=== PATIENT | female | born 1960 | race Caucasian/White ===

== ENCOUNTER 2017-05-13 14:00 | Emergency (ER) | payer OTHER ==
[~2017-05-13] VITALS: Ht 162.6 cm; Wt 85.3 kg
[~2017-05-13 14:00] MED LIST: ALEVE220 MG PO; CELEXA20 MG PO; ZANTAC150 MG PO; ZESTRIL,PRINIVI10 MG PO
[2017-05-13 15:55] LABS: HEMATOCRIT 40.1 % (36.0-46.0); MCH 27.7 PG (29.0-34.0); MCHC 34.2 G/DL (30.0-36.0); MEAN PLAT.VOLUME 10.1 uM^3 (9.5-12.4); PLATELET COUNT 188 K/uL (156-360); RBC DIS.WIDTH-CV 13.6 % (11.8-14.6); RBC DIS.WIDTH-SD 39.5 % (39-53); RED BLOOD COUNT 4.95 M/uL (3.80-5.20); WHITE BLOOD COUNT 7.2 K/uL (4.1-10.2)
[2017-05-13 16:15] LABS: CHLORIDE 104 mEq/L (99-109); SODIUM 140 mEq/L (136-147)
[2017-05-13 16:16] LABS: D-DIMER ELISA < 150.00 ng/mLDDU (<230); GLUCOSE 105 mg/dL (70-99)
[2017-05-13 16:18] LABS: ANION GAP 11 MEQ/L (2-14)
[2017-05-13 16:20] LABS: GFR ESTIMATE (CALCULATED) > 59 mL/min/
[2017-05-13 16:21] LABS: UREA NITROGEN (BUN) 12 mg/dL (9-23)
[2017-05-13 16:27] LABS: TROP-I INTERPRETATION NEGATIVE; TROPONIN-I < 0.01 ng/mL (0.0-0.30)
[2017-05-13 17:51] LABS: TROP-I INTERPRETATION NEGATIVE; TROPONIN-I < 0.01 ng/mL (0.0-0.30)
[2017-05-13] MEDS ORDERED: TRAMADOL HCL50 MG PO (18:14)
[2017-05-13 18:38] VITALS: BP 149/87
== END 2017-05-13 18:39 | disposition home or self-care (01) ==
LOC: EME 14:00
PROVIDERS: Physician Assistant Medical
DX: M54.6 Pain in thoracic spine (principal); K21.9 Gastro-esophageal reflux disease without esophagitis; F32.9 Major depressive disorder, single episode, unspecified; I45.10 Unspecified right bundle-branch block; F17.200 Nicotine dependence, unspecified, uncomplicated
CPT/HCPCS: 71020; 80048; 84484; 85027; 85379; 93005; 99281; 99283

== ENCOUNTER → 2017-09-20 | Outpatient (CLI) | payer OTHER ==
[~2017-09-20] MED LIST changes: +ATARAX,VISTARIL50 MG PO; +BREO ELLIPTA I1 EACH IH; +CLARITIN,ALAVAR10 MG PO; +LEVOTHYROXINE100 MCG PO; +MOTRIN400 MG PO; +PANTOPRAZOLE SO40 MG PO; +PRILOSEC OTC20 MG PO; +ROBITUSSIN100 MG/5 M PO; +SENNA8.6 MG PO; +SERTRALINE HCL100 MG PO; +TRAMADOL HCL50 MG PO
== END | disposition home or self-care (01) ==
LOC: RES 09:08
DX: R06.09 Other forms of dyspnea (principal); R06.02 Shortness of breath; R06.2 Wheezing
CPT/HCPCS: 94060; 94727; 94729

== ENCOUNTER 2017-09-21 23:36 | Observation (INO) | payer OTHER ==
[~2017-09-21] VITALS: Ht 162.6 cm; Wt 97.9 kg
[~2017-09-21 23:36] MED LIST changes: -ATARAX,VISTARIL50 MG PO; -BREO ELLIPTA I1 EACH IH; -CLARITIN,ALAVAR10 MG PO; -LEVOTHYROXINE100 MCG PO; -MOTRIN400 MG PO; -PANTOPRAZOLE SO40 MG PO; -PRILOSEC OTC20 MG PO; -SENNA8.6 MG PO; -SERTRALINE HCL100 MG PO
[2017-09-21 23:56] LABS: HEMATOCRIT 44.1 % (36.0-46.0); MCH 27.8 PG (29.0-34.0); MCHC 33.6 G/DL (30.0-36.0); MCV 82.9 FL (83-99); MEAN PLAT.VOLUME 10.1 uM^3 (9.5-12.4); PLATELET COUNT 288 K/uL (156-360); RBC DIS.WIDTH-CV 14.4 % (11.8-14.6); RBC DIS.WIDTH-SD 43.5 % (39-53); RED BLOOD COUNT 5.32 M/uL (3.80-5.20); WHITE BLOOD COUNT 10.7 K/uL (4.1-10.2)
[2017-09-22 00:04] LABS: CHLORIDE 105 mEq/L (99-109); POTASSIUM 3.8 mEq/L (3.7-5.4); SODIUM 141 mEq/L (136-147)
[2017-09-22 00:06] LABS: GLUCOSE 152 mg/dL (70-99)
[2017-09-22 00:07] LABS: ANION GAP 13 MEQ/L (2-14)
[2017-09-22 00:10] LABS: GFR ESTIMATE (CALCULATED) > 59 mL/min/; UREA NITROGEN (BUN) 18 mg/dL (9-23)
[2017-09-22 00:17] LABS: TROP-I INTERPRETATION NEGATIVE; TROPONIN-I < 0.01 ng/mL (0.0-0.30)
[2017-09-22 00:49] LABS: TOTAL BILIRUBIN 0.2 mg/dL (0.0-1.0)
[2017-09-22 00:50] LABS: ALKALINE PHOSPHATASE 119 IU/L (3-129)
[2017-09-22 00:53] LABS: DIRECT BILIRUBIN 0.1 mg/dL (0.0-0.3)
[2017-09-22 00:54] LABS: LIPASE 206 U/L (1.0-51.0)
[2017-09-22 04:14] LABS: D-DIMER ELISA < 150.00 ng/mLDDU (<230)
[2017-09-22 05:57] LABS: TROP-I INTERPRETATION NEGATIVE; TROPONIN-I < 0.01 ng/mL (0.0-0.30)
[2017-09-22 06:18] VITALS: BP 100/53
[2017-09-22] MEDS ORDERED: PRILOSEC OTC20 MG PO (10:48)
[2017-09-22] MEDS ORDERED: LEVOTHYROXINE100 MCG PO (10:49)
[2017-09-22] MEDS ORDERED: SENNA8.6 MG PO (10:50)
[2017-09-22] MEDS ORDERED: MOTRIN400 MG PO (10:50)
[2017-09-22] MEDS ORDERED: SERTRALINE HCL100 MG PO (10:51)
[2017-09-22] MEDS ORDERED: ATARAX,VISTARIL50 MG PO (10:52)
[2017-09-22] MEDS ORDERED: BREO ELLIPTA I1 EACH IH (10:52)
[2017-09-22] MEDS ORDERED: CLARITIN,ALAVAR10 MG PO (10:52)
[2017-09-22 11:03] LABS: HEMATOCRIT 42.9 % (36.0-46.0); MCH 27.4 PG (29.0-34.0); MCHC 32.2 G/DL (30.0-36.0); MCV 85.3 FL (83-99); MEAN PLAT.VOLUME 10.6 uM^3 (9.5-12.4); PLATELET COUNT 247 K/uL (156-360); RBC DIS.WIDTH-CV 14.7 % (11.8-14.6); RBC DIS.WIDTH-SD 45.9 % (39-53); RED BLOOD COUNT 5.03 M/uL (3.80-5.20)
[2017-09-22 11:06] LABS: ANION GAP 8 MEQ/L (2-14); CHLORIDE 108 MEQ/L (99-109); GFR ESTIMATE (CALCULATED) > 59 mL/min/; GLUCOSE 115 mg/dL (70-99); POTASSIUM 4.2 MEQ/L (3.7-5.4); SAMPLE HEMOLYSIS CHECK 0; SAMPLE ICTERIC CHECK 0; SAMPLE LIPEMIA CHECK 0; SODIUM 143 MEQ/L (136-147); UREA NITROGEN (BUN) 18 mg/dL (9-23)
[2017-09-22 11:53] VITALS: BP 124/78
[2017-09-22 13:02] LABS: TROP-I INTERPRETATION NEGATIVE; TROPONIN-I < 0.01 ng/mL (0.0-0.30)
[2017-09-22 16:38] VITALS: BP 131/96
[2017-09-22 20:00] VITALS: BP 122/64
[2017-09-23 00:04] VITALS: BP 112/51
[2017-09-23 03:52] VITALS: BP 103/60
[2017-09-23 05:21] LABS: HEMATOCRIT 42.9 % (36.0-46.0); MCH 26.9 PG (29.0-34.0); MCHC 32.4 G/DL (30.0-36.0); MEAN PLAT.VOLUME 9.9 uM^3 (9.5-12.4); PLATELET COUNT 242 K/uL (156-360); RBC DIS.WIDTH-CV 14.3 % (11.8-14.6); RBC DIS.WIDTH-SD 43.3 % (39-53); RED BLOOD COUNT 5.17 M/uL (3.80-5.20); WHITE BLOOD COUNT 8.5 K/uL (4.1-10.2)
[2017-09-23 05:46] LABS: ANION GAP 6 MEQ/L (2-14); CHLORIDE 105 MEQ/L (99-109); GFR ESTIMATE (CALCULATED) > 59 mL/min/; GLUCOSE 110 mg/dL (70-99); POTASSIUM 4.1 MEQ/L (3.7-5.4); SAMPLE HEMOLYSIS CHECK 0; SAMPLE ICTERIC CHECK 0; SAMPLE LIPEMIA CHECK 0; SODIUM 141 MEQ/L (136-147); UREA NITROGEN (BUN) 14 mg/dL (9-23)
[2017-09-23 08:10] VITALS: BP 139/79
[2017-09-23] MEDS ORDERED: PANTOPRAZOLE SO40 MG PO (10:39)
[2017-09-23 12:18] VITALS: BP 101/68
== END 2017-09-23 12:35 | disposition home or self-care (01) ==
LOC: EME 23:36 → EDOF 09-22 03:11 → 5WEST 09-22 03:11 → ENRESERV 09-22 03:12 → CANRESERV 09-22 03:12 → ENRESERV 09-22 03:23 → 5WEST 09-22 05:16
PROVIDERS: Hospitalist; Nurse Practitioner Adult Health
DX: R10.13 Epigastric pain (principal); R07.89 Other chest pain; R06.02 Shortness of breath; R11.0 Nausea; K59.00 Constipation, unspecified; R74.8 Abnormal levels of other serum enzymes; K21.9 Gastro-esophageal reflux disease without esophagitis; Z82.49 Family history of ischemic heart disease and other diseases of the circulatory system; I10 Essential (primary) hypertension; E11.9 Type 2 diabetes mellitus without complications; E03.9 Hypothyroidism, unspecified; D72.829 Elevated white blood cell count, unspecified; Z90.710 Acquired absence of both cervix and uterus; Z88.8 Allergy status to other drugs, medicaments and biological substances
CPT/HCPCS: 71020; 74177; 80048; 80076; 83690; 84484; 85027; 85379; 93005; 99281; 99284; G0378; J1650; J2270; J7030; S0028

== ENCOUNTER 2017-10-19 09:17 | Emergency (ER) | payer OTHER ==
[~2017-10-19] VITALS: Ht 162.6 cm; Wt 90.3 kg
[~2017-10-19 09:17] MED LIST changes: +ATARAX,VISTARIL50 MG PO; +BREO ELLIPTA I1 EACH IH; +CLARITIN,ALAVAR10 MG PO; +LEVOTHYROXINE100 MCG PO; +MOTRIN400 MG PO; +PANTOPRAZOLE SO40 MG PO; +PRILOSEC OTC20 MG PO; +SENNA8.6 MG PO; +SERTRALINE HCL100 MG PO
[2017-10-19 10:35] LABS: BASOPHIL (%) 0.2 % (0-1); EOSINOPHIL (%) 0.8 % (0-5); EOSINOPHIL COUNT 0.1 K/uL (0-0.3); HEMATOCRIT 41.5 % (36.0-46.0); IMMATURE GRANULOCYTE (%) 0.4 % (0.0-0.7); LYMPHOCYTE (%) 11.3 % (15-42); MCH 28.1 PG (29.0-34.0); MCHC 33.7 G/DL (30.0-36.0); MCV 83.3 FL (83-99); MONOCYTE (%) 5.8 % (3-12); MONOCYTE COUNT 0.5 K/uL (0-0.8); NEUTROPHIL (%) 81.5 % (45-76); NEUTROPHIL COUNT 7.4 K/uL (1.8-6.4); PLATELET COUNT 187 K/uL (156-360); RBC DIS.WIDTH-CV 14.5 % (11.8-14.6); RED BLOOD COUNT 4.98 M/uL (3.80-5.20)
[2017-10-19 10:44] LABS: CHLORIDE 103 mEq/L (99-109); POTASSIUM 4.1 mEq/L (3.7-5.4); SODIUM 135 mEq/L (136-147)
[2017-10-19 10:45] LABS: GLUCOSE 124 mg/dL (70-99)
[2017-10-19 10:49] LABS: GFR ESTIMATE (CALCULATED) > 59 mL/min/
[2017-10-19 10:50] LABS: UREA NITROGEN (BUN) 14 mg/dL (9-23)
[2017-10-19 10:55] LABS: TROP-I INTERPRETATION NEGATIVE; TROPONIN-I < 0.01 ng/mL (0.0-0.30)
[2017-10-19 11:53] VITALS: BP 116/48
== END 2017-10-19 11:53 | disposition home or self-care (01) ==
LOC: EME 09:17
PROVIDERS: Emergency Medicine
DX: J06.9 Acute upper respiratory infection, unspecified (principal); K21.9 Gastro-esophageal reflux disease without esophagitis; F32.9 Major depressive disorder, single episode, unspecified; I45.10 Unspecified right bundle-branch block; F41.9 Anxiety disorder, unspecified; Z87.891 Personal history of nicotine dependence; Z91.040 Latex allergy status; Z88.8 Allergy status to other drugs, medicaments and biological substances
CPT/HCPCS: 71046; 80048; 84484; 85025; 85379; 87502; 93005; 99281; 99284; J1100

== ENCOUNTER 2017-11-06 12:46 | Emergency (ER) | payer OTHER ==
[~2017-11-06] VITALS: Ht 162.6 cm; Wt 89.8 kg
[2017-11-06 13:20] VITALS: BP 131/55
== END 2017-11-06 14:54 | disposition left against medical advice (07) ==
LOC: EME 12:46
DX: M54.9 Dorsalgia, unspecified (principal); Z53.21 Procedure and treatment not carried out due to patient leaving prior to being seen by health care provider